=== PATIENT | male | born 1995 | race Caucasian/White ===

== ENCOUNTER 2021-03-20 14:32 | Outpatient (REF) | payer MEDICARE, MEDICAID, SELFPAY ==
[2021-03-20 16:25] LABS: MANUAL DIFF FLAG NO
[2021-03-20 16:30] LABS: Basophils Percent Auto 0.4 % (0-2); Eosinophils Absolute Auto 0.2 X10*3/uL (0.0-0.4); Eosinophils Percent Auto 2.2 % (0-4); Hematocrit 39.4 % (42.0-52.0); Hemoglobin 13.6 g/dl (14.0-18.0); Imm Gran Abs Auto 0.02 X10*3/uL (0.00-0.03); Imm Gran Pct Auto 0.3 % (0.0-0.4); Lymphocytes Absolute Auto 1.7 X10*3/uL (1.2-4.9); Lymphocytes Percent Auto 21.8 % (20-40); Mean Corpuscular HGB Conc 34.5 g/dl (31.0-36.0); Mean Corpuscular Hemoglobin 31.2 pg (27.0-33.0); Mean Corpuscular Volume 90.4 fL (80.0-98.0); Mean Platelet Volume 11.6 fL (9.4-12.4); Monocytes Absolute Auto 0.6 X10*3/uL (0.1-1.2); Monocytes Percent Auto 8.3 % (2-11); Neutrophils Absolute Auto 5.1 x10*3/uL (2.0-8.3); Platelet Count 213 X10*3/uL (160-400); Red Blood Count 4.36 X10*6/uL (4.60-5.80); Red Cell Distribution Width 12.2 % (11.0-16.0); White Blood Count 7.6 X10*3/uL (4.8-10.8)
[2021-03-20 16:57] LABS: Alanine Aminotransferase 67 U/L (0-40); Albumin Level 4.5 g/dL (3.5-5.0); Alkaline Phosphatase 116 U/L (39-117); Anion Gap 13 (12-20); Aspartate Amino Transferase 41 U/L (5-37); Bilirubin Total 0.6 mg/dL (0.0-1.0); Blood Urea Nitrogen 13 mg/dL (9-16); Calcium 10.1 mg/dL (8.4-10.2); Carbon Dioxide 25 mmol/L (22-29); Chloride 106 mmol/L (96-108); Cholesterol 241 mg/dL; Estimated Glomerular Filt Rate > 60; Glucose Fasting 92 mg/dL (60-99); HDL Cholesterol 41 mg/dL; LDL Cholesterol Calculated 140 mg/dl; Potassium 3.9 mmol/L (3.3-5.1); Sodium 140 mmol/L (135-145); Total Protein 7.7 g/dL (6.5-8.0); Triglycerides 300 mg/dL
[2021-03-20 17:19] LABS: Thyroid Stimulating Hormone 3.34 uIU/mL (0.32-4.0); Vitamin D 25-OH Total 22.7 ng/mL (>30)
[2021-03-26 07:11] LABS: Levetiracetam Keppra 20.4 mcg/mL (12.0-46.0)
== END 2021-03-20 14:33 | disposition home or self-care (01) ==
LOC: HO.HMGCLDS 14:32
PROVIDERS: PCP Internal Medicine; Visit Provider Internal Medicine
DX: G40.909 Epilepsy, unspecified, not intractable, without status epilepticus (principal); K21.9 Gastro-esophageal reflux disease without esophagitis; Z79.899 Other long term (current) drug therapy
CPT/HCPCS: 36415; 80053; 80061; 80177; 82306; 84443; 85025

== ENCOUNTER 2022-02-26 15:52 | Outpatient (REF) | payer MEDICARE, MEDICAID, SELFPAY ==
--- NOTE | ~2022-02-26 | MR_ITS ---
EXAMINATION: MR LUMBAR SPINE WITHOUT CONTRAST CLINICAL INFORMATION: Right-sided sciatica. COMPARISON: None. TECHNIQUE: Multiplanar, multisequence imaging was obtained. Limited study with motion artifacts. FINDINGS: VERTEBRAL BODIES AND PARASPINAL STRUCTURES: The marrow signal is within normal limits. There is a mild retrosubluxation and reduced intradiscal signal without a loss of disc height at the L4-L5 level. Mild disc space narrowing and endplate spurring evident at the L5-S1 level with disc degeneration. There are no compression fractures. The remaining discs are well hydrated. The paraspinal soft tissues are unremarkable. CONUS MEDULLARIS AND CAUDA EQUINE: The distal cord, conus tip, and cauda equina nerve roots are normal. SPINAL LEVELS: L1-L2, L2-L3, and L3-L4: Well-hydrated normal appearance of the discs without central canal stenosis or foraminal narrowing. L4-L5: Mild posterior subluxation and loss of normal intradiscal signal with a shallow central disc protrusion demonstrating mild caudal migration and distortion of the ventral thecal sac. [id number] facet arthropathy and mild central canal stenosis. Mild bilateral foraminal narrowing. L5-S1: Loss of disc height with a posterior disc bulge and endplate spurring. Large disc extrusion migrates superiorly and inferiorly and is only well assessed on the sagittal acquisitions, as significant motion artifacts on axial imaging limit assessment. The disc extrusion measures 1.8 cm TV by 2.4 cm CC by 0.7 cm AP. The disc extrusion compresses the thecal sac and impinges upon the right greater than left S1 nerve roots. A portion of extruded disc which migrates into the right lateral recess superiorly compresses the right L5 nerve root. There is suspected mass effect upon the right S2 nerve root as well. Mild right foraminal narrowing. MR/MR lumbar spine wo con IMPRESSION: 1. Limited study with motion artifacts. Disc degeneration and posterior disc bulge with endplate spurring at the L5-S1 level. Large disc extrusion with superior and inferior migration compressing the thecal sac and impinging upon the right greater than left S1 nerve roots and the right S2 nerve root as well. Ascending component of the disc extrusion compresses the right L5 nerve root in the right lateral recess. 2. Mild posterior subluxation and disc degeneration with a shallow central disc protrusion at the L4-L5 level mildly distorting the ventral thecal sac. [id number] facet arthropathy and mild central canal stenosis.
== END 2022-02-26 15:53 | disposition home or self-care (01) ==
LOC: HO.MRI 15:52
PROVIDERS: PCP Internal Medicine; Visit Provider Internal Medicine
DX: M51.06 Intervertebral disc disorders with myelopathy, lumbar region (principal); M51.16 Intervertebral disc disorders with radiculopathy, lumbar region
CPT/HCPCS: 72148